=== PATIENT | female | born 1995 | race Caucasian/White ===

== ENCOUNTER 2016-10-14 19:24 | Emergency (ER) | payer BC ==
[2016-10-14] MEDS ORDERED: Ketorolac INJ* 60 MG/2 ML VIAL IM ONE (19:45)
[2016-10-14 20:30] LABS: Manual Entry Verification MD; UR Preg Internal Control QC Line Present
[2016-10-14] MEDS ORDERED: Ibuprofen TAB* 600 MG PO ONE (20:52)
--- NOTE | 2016-10-14 20:54 | RAD ---
HISTORY: Neck pain after chiropractic adjustment, trauma COMPARISONS: None VIEWS: 5, Frontal, lateral, open-mouth odontoid, and bilateral oblique views of the cervical spine. FINDINGS: The cervical spine is visualized from the skull base through C7-T1. ALIGNMENT: There is straightening of the normal cervical lordosis. VERTEBRAL BODIES: The odontoid process is intact. The atlantoaxial intervals are symmetric. JOINTS: There is no subluxation or dislocation. The facet joints are unremarkable. INTERVERTEBRAL DISCS: The intervertebral disc heights are normal. SOFT TISSUE: The prevertebral soft tissues are normal. OTHER: The skull base is normal. The lung apices are clear. IMPRESSION: STRAIGHTENING OF THE CERVICAL LORDOSIS.
[2016-10-14 21:03] VITALS: BP 142/70
--- NOTE | 2016-10-14 22:39 | ED ---
Teddy Luo Alok, scribed for Petey Kruse MD on 10/14/16 at 1945 . Neck Pain - HPI Summary HPI Summary: 21F presents to the ED for neck pain. Pt states that he was at the chiropractor after being offered a free adjustment and notes pain immediately after being readjusted. Pt describes the procedure as being placed in the position and having her neck jerked to the side resulting in several cracks and immediate pain. Pt states that her neck pain is concentrated on the right side. - History of Current Complaint Chief Complaint: EDNeckComplaint Stated Complaint: HEAD AND NECK PAIN AFTER CHIROPRACTER VISIT Time Seen by Provider: 10/14/16 19:34 Hx Obtained From: Patient Onset/Duration Of Injury/Symptoms: Minutes Mechanism Of Injury: Other - pain after chiropracter adjustment Timing: Constant Onset/Duration: Still Present Severity Initially: Moderate Severity Currently: Moderate Pain Intensity: 10 Pain Scale Used: 0-10 Numeric Location: Discrete At: - neck Aggravating Factors: Position Alleviating Factors: Nothing - Allergies/Home Medications Allergies/Adverse Reactions: Allergies Allergy/AdvReac Type Severity Reaction Status Date / Time No Known Allergies Allergy Verified 10/14/16 19:27 PMH/Surg Hx/FS Hx/Imm Hx Endocrine/Hematology History: Denies: Hx Diabetes Cardiovascular History: Denies: Hx Hypertension Infectious Disease History: Reports: Traveled Outside the in Last 30 Days - [facility] - Family History Known Family History: Negative: Hypertension - Social History Occupation: Employed Full-time Review of Systems Negative: Fever Positive: Other - neck pain All Other Systems Reviewed And Are Negative: Yes Physical Exam Triage Information Reviewed: Yes Vital Signs On Initial Exam: Initial Vitals Temp Pulse Resp BP Pulse Ox 100.0 F 74 18 140/62 98 10/14/16 19:28 10/14/16 19:28 10/14/16 19:28 10/14/16 19:28 10/14/16 19:28 Vital Signs Reviewed: Yes Appearance: Positive: Well-Appearing, No Pain Distress Skin: Positive: Warm, Skin Color Reflects Adequate Perfusion, Dry Head/Face: Positive: Normal Head/Face Inspection Eyes: Positive: Normal ENT: Positive: Normal ENT inspection Neck: Positive: Other: - Right paracervical area tenderness Respiratory/Lung Sounds: Positive: Clear to Auscultation, Breath Sounds Present Cardiovascular: Positive: RRR Abdomen Description: Positive: Nontender, Soft Bowel Sounds: Positive: Present Musculoskeletal: Positive: Other - Right paracervical area tenderness Neurological: Positive: Normal Psychiatric: Positive: Normal, Affect/Mood Appropriate Diagnostics - Vital Signs Vital Signs Temp Pulse Resp BP Pulse Ox 10/14/16 19:28 100.0 F 74 18 140/62 98 - Laboratory Lab Results: Lab Results 10/14/16 Range/Units 20:00 Urine Test Negative (Negative) Lab Statement: Any lab studies that have been ordered have been reviewed, and results considered in the medical decision making process. - Radiology Cervical Spine XRAY Xray Interpretation: Positive (See Comments) - STRAIGHTENING OF THE CERVICAL LORDOSIS. Radiology Interpretation Completed By: Radiologist Neck Course/Dx - Course Course Of Treatment: A soft collar seemed to help Ms. Quijano's pain and plain films were negative. I think she has some cervicle straiin and spasm and recommended that she use the collar for comfort and ibuprofen for inflammation. - Diagnoses Provider Diagnoses: Cervical strain, acute Discharge - Discharge Plan Condition: Stable Disposition: HOME Patient Education Materials: Cervical Strain (ED) Referrals: [facility] [Outside] No Primary Care Phys,NOPCP [Primary Care Provider] - Additional Instructions: We recommend Ibuprofen taken as needed for pain Please follow up with your primary care doctor The documentation as recorded by the Teddy ramos Alok accurately reflects the service I personally performed and the decisions made by me, Petey Kruse MD.
== END 2016-10-14 21:05 | disposition home or self-care (01) ==
LOC: ED 19:24
DX: S16.1XXA Strain of muscle, fascia and tendon at neck level, initial encounter (principal); M54.2 Cervicalgia; X58.XXXA Exposure to other specified factors, initial encounter; Y93.9 Activity, unspecified; Y92.9 Unspecified place or not applicable
CPT/HCPCS: 72050; 81025; 96372; 99282; A9270-GY; J1885